=== PATIENT | male | born 1990 | race Caucasian/White ===

== ENCOUNTER 2017-01-25 15:02 | Emergency (ER) | payer SELFPAY ==
[~2017-01-25] VITALS: Ht 182.9 cm; Wt 82.2 kg
[2017-01-25 15:08] VITALS: BP 119/70; PULSE 82; RESP 18; TEMP 97.9; O2SAT 96
[2017-01-25] MEDS ORDERED: BACT800T5 PO (15:24)
[2017-01-25] MEDS ORDERED: MUPI2OIN TOPICAL (15:24)
--- NOTE | 2017-01-25 15:25 | PD ---
HPI Chief Complaint: Skin Problem Time Seen by Provider: 15:17 Travel History International Travel<30 days: No Contact w/Intl Traveler<30days: No Traveled to known affect area: No History of Present Illness HPI Patient is a 26-year-old male presenting to emergency for evaluation of lip swelling and a skin lesion that has been present for approximately 2 days. Patient states that his lip is tender, the pain radiates to the right cheek. He denies any fever, chills, nausea, vomiting, headache, chest pain, shortness of breath. 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 He has not used IV drugs and second months. Patient has a history of the same but not on his face. PFSH Past Medical History Diminished Hearing: No Medical other: Yes (MRSA, IVDU) Immunizations Current: Yes Past Surgical History Other Surgery: Yes (HX OF CHEST TUBE) Social History Alcohol Use: Yes (OCCASIONAL) Tobacco Use: Yes Substance Use: Yes Allergies-Medications (Allergen,Severity, Reaction): Coded Allergies: No Known Allergies (Unverified , 01/25/17) Reported Meds & Prescriptions Reported Meds & Active Scripts Active Mupirocin Topical (Mupirocin) 2 % Oint 1 Applic TOPICAL BID Bactrim DS (Sulfamethoxazole-Trimethoprim) 800-160 Mg Tab 1 Tab PO BID Review of Systems Except as stated in HPI: all other systems reviewed are Neg Musculoskeletal: Positive: Edema Skin: Positive Lesions Physical Exam Narrative GENERAL: Well-developed, well-nourished, alert male. SKIN: Warm and dry. 1 cm crusted lesion on right upper lip just beneath right nostril. Upper lip is edematous, no erythema noted. Pt has small scabs scattered on arms, legs, face. No surrounding edema, erythema or induration. MOUTH: Mucous membranes moist, no lesions, tongue and gums appear normal. HEAD: Normocephalic. EYES: No scleral icterus. No injection or drainage. NECK: Supple, trachea midline. No JVD or lymphadenopathy. CARDIOVASCULAR: Regular rate and rhythm without murmurs, gallops, or rubs. RESPIRATORY: Breath sounds equal bilaterally. No accessory muscle use. GASTROINTESTINAL: Abdomen soft, non-tender, nondistended. MUSCULOSKELETAL: No cyanosis, or edema. BACK: Nontender without obvious deformity. No CVA tenderness. Data Data Last Documented VS Vital Signs Date Time Temp Pulse Resp B/P Pulse Ox O2 Delivery O2 Flow Rate FiO2 01/25/17 15:08 97.9 82 18 119/70 96 [facility] Medical Decision Making Medical Screen Exam Complete: Yes Emergency Medical Condition: Yes Medical Record Reviewed: Yes Interpretation(s) Vital Signs Date Time Temp Pulse Resp B/P Pulse Ox O2 Delivery O2 Flow Rate FiO2 01/25/17 15:08 97.9 82 18 119/70 96 Differential Diagnosis Cellulitis versus impetigo versus abscess versus dermatitis versus other Narrative Course Vision is a 26-year-old male presenting to the emergency room for evaluation of the skin lesion and upper lip swelling symptoms appear most consistent with impetigo, patient has a history of MRSA skin infection. He'll be treated empirically, there was no drainage noted so therefore no wound culture was obtained. Diagnosis Primary Impression: Impetigo Additional Impression: Cellulitis Qualified Code: L03.90 - Cellulitis, unspecified cellulitis site Referrals: [facility] Patient Instructions: Cellulitis (DC), General Instructions, Impetigo (ED) Additional Instructions: Complete full course of antibiotics as prescribed Follow-up at the [facility] for routine health care Return to emergency department immediately for any new or worsening symptoms Apply prescription topical antibiotic ointment twice daily to the affected area Do not pick at scab to avoid spreading section. Med/Other Pt SpecificInfo: Prescription(s) given Scripts Mupirocin Topical 2 % Oint1 Applic TOPICAL BID #22 GM Ref 0 Prov:Sumi Hill 01/25/17 Sulfamethoxazole-Trimethoprim (Bactrim DS)800-160 Mg Tab1 Tab PO BID #20 TAB Ref 0 Prov:Sumi Hill 01/25/17 Disposition: 01 DISCHARGE HOME Condition: Stable Sumi Hill Jan 25, 2017 15:25
== END 2017-01-25 15:32 | disposition home or self-care (01) ==
LOC: PHEFT 15:02
DX: L01.00 Impetigo, unspecified (principal); L03.90 Cellulitis, unspecified; Z72.0 Tobacco use; Z86.14 Personal history of Methicillin resistant Staphylococcus aureus infection
CPT/HCPCS: 99282